=== PATIENT | male | born 1960 | race Caucasian/White ===

== ENCOUNTER 2020-10-17 14:58 | Emergency (ER) | payer OTHER ==
[2020-10-17 15:28] VITALS: TEMP 97.3; BMI 22.9
[2020-10-17 16:21] LABS: BASO % 1.8 % (0-2.0); EOS % 1.5 % (0-4.5); HEMATOCRIT 36.3 % (35.4-49); HEMOGLOBIN 12.3 GM/dL (11.7-16.9); MCH 35.7 pg (25.7-33.7); MCHC 33.8 g/dl (32.0-35.9); MEAN CELL VOLUME 105.7 fl (80-96); MEAN PLT VOLUME 8.1 fl (7.5-11.1); MONO % 9.9 % (3.8-10.2); NEUT % 42.8 % (42.8-82.8); PLATELET COUNT 112 K/MM3 (134-434); RBC 3.44 M/mm3 (4.00-5.60); RDW 13.8 % (11.9-15.9); WHITE BLOOD COUNT 3.2 K/mm3 (4.0-10.0)
[2020-10-17 16:51] LABS: ALBUMIN 3.5 g/dl (3.4-5.0); BLOOD UREA NITROGEN 12.3 mg/dL (7-18); CALCIUM 8.3 mg/dL (8.5-10.1)
[2020-10-17 16:55] LABS: CREATININE 0.8 mg/dL (0.55-1.3)
[2020-10-17 16:56] LABS: BILIRUBIN,TOTAL 0.5 mg/dL (0.2-1); TOT PROT 8.6 g/dl (6.4-8.2)
[2020-10-17 18:47] VITALS: BP 136/89; PULSE 89
[2020-10-17 19:47] LABS: ANISOCYTOSIS 1+; MACROCYTOSIS 1+; PLATELET ESTIMATE DECREASED
== END 2020-10-17 18:46 | disposition left against medical advice (07) ==
LOC: JER 14:58
DX: F10.920 Alcohol use, unspecified with intoxication, uncomplicated (principal)
CPT/HCPCS: 36415; 70450-TC; 72125-TC; 80053; 80307; 82550; 82553; 85025; 99285-25